=== PATIENT | male | born 1960 | race Caucasian/White ===

== ENCOUNTER 2016-12-02 16:37 | Emergency (ER) | payer BC, OTHER ==
[2016-12-02] MEDS ORDERED: Aspirin 81 MG Tab.Chew PO ONE (16:38)
--- NOTE | 2016-12-02 17:04 | EDM.PDOC ---
ED HPI GENERAL MEDICAL PROBLEM - General Chief Complaint: Chest Pain Stated Complaint: CHEST PAIN Time Seen by Provider: 12/02/16 16:45 Source of Information: Reports: Patient, Family - History of Present Illness INITIAL COMMENTS - FREE TEXT/NARRATIVE: 56 y.o.w.m[place] (out of state)anxious, s/p multiple CAD w/ups, including Stress tests, H/O HTN, was drinking last night heavily. he came to the ED with his friend to the ed due to SSCP, non radiating. No N/V/D, pt fellt dizzy MANHOLE STRIPPER, which has been subsiding. He is [place] in [place]. He is taking ativan occ for anxiety. No F/C or any other acute medical issues. His SSCP was 1/10 after ASA was given her in the ED. His BP was 145/67 and his pulse was 73 BPM on arrival. Onset: Today Onset Date: 12/02/16 Onset Time: 13:00 Duration: Hour(s): Location: Reports: Chest Quality: Reports: Pressure, Same as Previous Episode, Stabbing, Throbbing Severity: Moderate Improves with: Reports: Medication, Rest Worsens with: Reports: Other (anxiety) Context: Reports: Other (anxiety) Associated Symptoms: Reports: Chest Pain, Diaphoresis Treatments MANHOLE STRIPPER: Reports: Aspirin (given here in the ed) Chest Pain Score (Numeric/FACES): 2 - Related Data Allergies Allergy/AdvReac Type Severity Reaction Status Date / Time No Known Allergies Allergy Verified 12/02/16 16:49 Home Meds: Home Meds Aspirin [Adult Low Dose Aspirin EC] 1 tab PO DAILY 09/08/15 [History] LORazepam [Ativan] 1 mg PO BID PRN 09/08/15 [History] Lisinopril 10 mg PO DAILY 09/08/15 [History] Simvastatin [Zocor] 20 mg PO BEDTIME 09/08/15 [History] LORazepam [Ativan] 0.5 mg PO BEDTIME PRN #2 tab 12/02/16 [Rx] Past Medical History HEENT History: Reports: Impaired Vision, Sinusitis Cardiovascular History: Reports: High Cholesterol, Hypertension, Other (See Below) Other Cardiovascular History: abnormal EKG Gastrointestinal History: Reports: GERD Musculoskeletal History: Reports: Fracture Psychiatric History: Reports: Anxiety Endocrine/Metabolic History: Reports: Other (See Below) Other Endocrine/Metabolic History: borderline diabetic, then lost weight Other Hematologic History: factor 5 Leiden - Infectious Disease History Infectious Disease History: Reports: Chicken Pox, Influenza, Mononucleosis, Shingles - Past Surgical History GI Surgical History: Reports: Appendectomy, Hernia Repair/Other Social & Family History - Tobacco Use Smoking Status *Q: Never Smoker Packs/Tins Daily: 0.5 Second Hand Smoke Exposure: No - Caffeine Use Caffeine Use: Reports: Coffee - Alcohol Use Days Per Week of Alcohol Use: 4 Number of Drinks Per Day: 3 Total Drinks Per Week: 12 - Recreational Drug Use Recreational Drug Use: No ED ROS GENERAL - Review of Systems Review Of Systems: See Below Constitutional: Reports: No Symptoms HEENT: Reports: No Symptoms Respiratory: Reports: No Symptoms Cardiovascular: Reports: Chest Pain (02/20 after ASA) Endocrine: Reports: No Symptoms GI/Abdominal: Reports: No Symptoms : Reports: No Symptoms Musculoskeletal: Reports: No Symptoms Skin: Reports: No Symptoms Neurological: Reports: No Symptoms Psychiatric: Reports: No Symptoms Hematologic/Lymphatic: Reports: No Symptoms Immunologic: Reports: No Symptoms ED EXAM, GENERAL - Physical Exam Exam: See Below Exam Limited By: No Limitations General Appearance: Alert, WD/WN, Mild Distress Eye Exam: Bilateral Eye: Normal Inspection Ears: Normal External Exam Ear Exam: Bilateral Ear: Auricle Normal Nose: Normal Inspection Throat/Mouth: Normal Inspection, Normal Gums, Normal Oropharynx, Normal Voice, No Airway Compromise Head: Atraumatic, Normocephalic Neck: Normal Inspection, Supple, Non-Tender Respiratory/Chest: No Respiratory Distress, Lungs Clear, Normal Breath Sounds, No Accessory Muscle Use, Chest Non-Tender Cardiovascular: Normal Peripheral Pulses, Regular Rate, Rhythm, No Edema, No Gallop, No JVD, No Murmur, No Rub Peripheral Pulses: 1+: Femoral (L), Femoral (R) GI/Abdominal: Normal Bowel Sounds, Soft, Non-Tender (Male) Exam: Deferred Rectal (Males) Exam: Deferred Back Exam: Normal Inspection Extremities: Normal Inspection, Normal Range of Motion, Non-Tender, No Pedal Edema Neurological: Alert, Oriented, CN II-XII Intact, Normal Cognition, No Motor/ Sensory Deficits Psychiatric: Anxious Skin Exam: Warm, Dry, Intact, Normal Color Lymphatic: No Adenopathy EKG INTERPRETATION EKG Date: 12/02/16 Time: 16:50 Rhythm: NSR Rate (Beats/Min): 75 [place]: Normal P-Wave: Present QRS: Normal ST-T: Normal QT: Normal Comparison: NA - No Prior EKG Course - Vital Signs Text/Narrative:: 56 y.o.w.m. (out of state)anxious, s/p multiple CAD w/ups, including Stress tests, H/O HTN, was drinking last night heavily. he came to the ED with his friend to the ed due to SSCP, non radiating. No N/V/D, pt fellt dizzy MANHOLE STRIPPER, which has been subsiding. He is [place] in [place]. He is taking ativan occ for anxiety. No F/C or any other acute medical issues. His SSCP was 1/10 after ASA was given her in the ED. His BP was 145/67 and his pulse was 73 BPM on arrival. PE: WNWD WM, anxious HEENT; Dry mucosal membrane, Lungs clear, heart RRR no murmur, benign abd. and ext. neuro: No focal weakness Labs: CBC, [place] enzymes, drug screen neg. Torponin 0.01 D Dimer <100 Imaging: CXR NAD, official report is pending Impression: a typical CP, Anxiety, dehydration Tx: ASA, Lorazepam, water po Reexam: Improved, no C/P anxiety has been resolved BP was 138/78 on D/C Plan: D/C with instructions Last Recorded V/S: Last Vital Signs Temp 36.8 C 12/02/16 18:30 Pulse 76 12/02/16 18:30 Resp 18 12/02/16 18:30 BP 138/93 H 12/02/16 18:30 Pulse Ox 98 12/02/16 18:30 - Orders/Labs/Meds Orders: Active Orders 24 hr Category Date Time Status EKG Documentation Completion [RC] ASDIRECTED Care 12/02/16 16:45 Active Chest 1V Frontal [CR] Stat Exams 12/02/16 17:01 Taken EKG 12 Lead [EK] Routine Ther 12/02/16 16:45 Ordered Labs: Laboratory Tests 12/02/16 12/02/16 12/02/16 Range/Units 16:45 16:45 17:00 WBC 7.6 (4.5-12.0) X10-3/uL RBC 5.42 (4.30-5.75) x10(6)uL Hgb 16.0 H (11.5-15.5) g/dL Hct 46.8 (30.0-51.3) % MCV 86.4 (80-96) fL MCH 29.4 (27.7-33.6) pg MCHC 34.1 (32.2-35.4) g/dL RDW 12.2 (11.5-15.5) % Plt Count 199 (125-369) X10(3)uL MPV 8.9 (7.4-10.4) fL Neut % (Auto) 78.6 (46-82) % Lymph % (Auto) 15.0 (13-37) % [place] % (Auto) 5.6 (4-12) % Eos % (Auto) 1 (1.0-5.0) % Baso % (Auto) 0 (0-2) % Neut # (Auto) 6.1 (1.6-8.3) # Lymph # (Auto) 1.1 (0.6-5.0) # [place] # (Auto) 0.4 (0.0-1.3) # Eos # (Auto) 0.0 (0.0-0.8) # Baso # (Auto) 0.0 (0.0-0.2) # D-Dimer, Quantitative (100-400) ng/mL Sodium (135-145) mmol/L Potassium (3.5-5.3) mmol/L Chloride (100-110) mmol/L Carbon Dioxide (23-29) mmol/L BUN (5-20) mg/dL Creatinine (0.6-1.3) mg/dL Est Cr Clr Drug Dosing Estimated GFR (MDRD) (>60) BUN/Creatinine Ratio (9-20) Glucose (80-116) mg/dL Calcium (8.6-10.2) mg/dL Troponin I (0.02-0.06) NG/ML Urine Color Yellow (YELLOW) Urine Appearance Clear (CLEAR) Urine pH 5.0 (5.0-6.5) Ur Specific [place] 1.010 (1.010-1.025) Urine Protein Negative (NEGATIVE) mg/dL Urine Glucose (UA) Normal (NEGATIVE) mg/dL Urine Ketones Negative (NEGATIVE) mg/dL Urine Occult Blood Negative (NEGATIVE) Urine Nitrite Negative (NEGATIVE) Urine Bilirubin Negative (NEGATIVE) Urine Urobilinogen Normal (NEGATIVE) mg/dL Ur Leukocyte Esterase Negative (NEGATIVE) Urine WBC 0-5 (0) Ur Squamous Epith Cells Occasional (NS,R,O) Urine Bacteria Few H (NS) Urine Opiates Screen Negative (NEGATIVE) Ur Oxycodone Screen Negative (NEGATIVE) Ur Propoxyphene Screen Negative (NEGATIVE) Ur Barbituates Screen Negative (NEGATIVE) Ur Tricyclics Screen Negative (NEGATIVE) Ur Phencyclidine Scrn Negative (NEGATIVE) Ur Amphetamine Screen Negative (NEGATIVE) Urine MDMA Screen Negative (NEGATIVE) U Benzodiazepines Scrn Negative (NEGATIVE) U Cocaine Metab Screen Negative (NEGATIVE) U Marijuana (THC) Screen Negative (NEGATIVE) Ethyl Alcohol (<0.01) % 12/02/16 12/02/16 12/02/16 Range/Units 17:00 17:00 17:00 WBC (4.5-12.0) X10-3/uL RBC (4.30-5.75) x10(6)uL Hgb (11.5-15.5) g/dL Hct (30.0-51.3) % MCV (80-96) fL MCH (27.7-33.6) pg MCHC (32.2-35.4) g/dL RDW (11.5-15.5) % Plt Count (125-369) X10(3)uL MPV (7.4-10.4) fL Neut % (Auto) (46-82) % Lymph % (Auto) (13-37) % [place] % (Auto) (4-12) % Eos % (Auto) (1.0-5.0) % Baso % (Auto) (0-2) % Neut # (Auto) (1.6-8.3) # Lymph # (Auto) (0.6-5.0) # [place] # (Auto) (0.0-1.3) # Eos # (Auto) (0.0-0.8) # Baso # (Auto) (0.0-0.2) # D-Dimer, Quantitative < 100 L (100-400) ng/mL Sodium 136 (135-145) mmol/L Potassium 3.8 (3.5-5.3) mmol/L Chloride 105 (100-110) mmol/L Carbon Dioxide 22 L (23-29) mmol/L BUN 17 (5-20) mg/dL Creatinine 1.0 (0.6-1.3) mg/dL Est Cr Clr Drug Dosing TNP Estimated GFR (MDRD) > 60 (>60) BUN/Creatinine Ratio 17.0 (9-20) Glucose 111 (80-116) mg/dL Calcium 9.3 (8.6-10.2) mg/dL Troponin I < 0.01 L (0.02-0.06) NG/ML Urine Color (YELLOW) Urine Appearance (CLEAR) Urine pH (5.0-6.5) Ur Specific [place] (1.010-1.025) Urine Protein (NEGATIVE) mg/dL Urine Glucose (UA) (NEGATIVE) mg/dL Urine Ketones (NEGATIVE) mg/dL Urine Occult Blood (NEGATIVE) Urine Nitrite (NEGATIVE) Urine Bilirubin (NEGATIVE) Urine Urobilinogen (NEGATIVE) mg/dL Ur Leukocyte Esterase (NEGATIVE) Urine WBC (0) Ur Squamous Epith Cells (NS,R,O) Urine Bacteria (NS) Urine Opiates Screen (NEGATIVE) Ur Oxycodone Screen (NEGATIVE) Ur Propoxyphene Screen (NEGATIVE) Ur Barbituates Screen (NEGATIVE) Ur Tricyclics Screen (NEGATIVE) Ur Phencyclidine Scrn (NEGATIVE) Ur Amphetamine Screen (NEGATIVE) Urine MDMA Screen (NEGATIVE) U Benzodiazepines Scrn (NEGATIVE) U Cocaine Metab Screen (NEGATIVE) U Marijuana (THC) Screen (NEGATIVE) Ethyl Alcohol (<0.01) % 12/02/16 Range/Units 17:00 WBC (4.5-12.0) X10-3/uL RBC (4.30-5.75) x10(6)uL Hgb (11.5-15.5) g/dL Hct (30.0-51.3) % MCV (80-96) fL MCH (27.7-33.6) pg MCHC (32.2-35.4) g/dL RDW (11.5-15.5) % Plt Count (125-369) X10(3)uL MPV (7.4-10.4) fL Neut % (Auto) (46-82) % Lymph % (Auto) (13-37) % [place] % (Auto) (4-12) % Eos % (Auto) (1.0-5.0) % Baso % (Auto) (0-2) % Neut # (Auto) (1.6-8.3) # Lymph # (Auto) (0.6-5.0) # [place] # (Auto) (0.0-1.3) # Eos # (Auto) (0.0-0.8) # Baso # (Auto) (0.0-0.2) # D-Dimer, Quantitative (100-400) ng/mL Sodium (135-145) mmol/L Potassium (3.5-5.3) mmol/L Chloride (100-110) mmol/L Carbon Dioxide (23-29) mmol/L BUN (5-20) mg/dL Creatinine (0.6-1.3) mg/dL Est Cr Clr Drug Dosing Estimated GFR (MDRD) (>60) BUN/Creatinine Ratio (9-20) Glucose (80-116) mg/dL Calcium (8.6-10.2) mg/dL Troponin I (0.02-0.06) NG/ML Urine Color (YELLOW) Urine Appearance (CLEAR) Urine pH (5.0-6.5) Ur Specific [place] (1.010-1.025) Urine Protein (NEGATIVE) mg/dL Urine Glucose (UA) (NEGATIVE) mg/dL Urine Ketones (NEGATIVE) mg/dL Urine Occult Blood (NEGATIVE) Urine Nitrite (NEGATIVE) Urine Bilirubin (NEGATIVE) Urine Urobilinogen (NEGATIVE) mg/dL Ur Leukocyte Esterase (NEGATIVE) Urine WBC (0) Ur Squamous Epith Cells (NS,R,O) Urine Bacteria (NS) Urine Opiates Screen (NEGATIVE) Ur Oxycodone Screen (NEGATIVE) Ur Propoxyphene Screen (NEGATIVE) Ur Barbituates Screen (NEGATIVE) Ur Tricyclics Screen (NEGATIVE) Ur Phencyclidine Scrn (NEGATIVE) Ur Amphetamine Screen (NEGATIVE) Urine MDMA Screen (NEGATIVE) U Benzodiazepines Scrn (NEGATIVE) U Cocaine Metab Screen (NEGATIVE) U Marijuana (THC) Screen (NEGATIVE) Ethyl Alcohol < 0.01 (<0.01) % Meds: Medications Discontinued Medications Generic Name Dose Route Start Last Admin Trade Name Freq PRN Reason Stop Dose Admin Aspirin 324 mg 12/02/16 16:38 12/02/16 16:38 Aspirin PO 10/22/17 16:39 324 mg ONETIME ONE Administration Lorazepam 0.5 mg 12/02/16 18:35 12/02/16 18:43 Ativan PO 12/02/16 18:36 0.5 mg ONETIME ONE Administration Departure - Departure Time of Disposition: 18:26 Disposition: Home, Self-Care 01 Condition: Good Clinical Impression: Atypical chest pain, Anxiety Prescriptions: LORazepam [Ativan] 0.5 mg PO BEDTIME PRN #2 tab PRN Reason: Anxiety Referrals: PCP,None [Primary Care Provider] - Forms: ED Department Discharge Additional Instructions: Please take the lisinopril as recommended, Ativan at bedtime for anxiety, please f/u to get your BP checked this Saturday, Benadyl as sleep inducer. Please come back to the ed if your symptoms get worse acutely. - My Orders Last 24 Hours: My Active Orders 12/02/16 16:45 EKG Documentation Completion [RC] ASDIRECTED EKG 12 Lead [EK] Routine 12/02/16 17:01 Chest 1V Frontal [CR] Stat - Assessment/Plan Last 24 Hours: My Active Orders 12/02/16 16:45 EKG Documentation Completion [RC] ASDIRECTED EKG 12 Lead [EK] Routine 12/02/16 17:01 Chest 1V Frontal [CR] Stat
[2016-12-02 18:31] VITALS: BP 138/93
[2016-12-02] MEDS ORDERED: LORazepam 0.5 MG Tab PO ONE (18:35)
--- NOTE | 2016-12-03 11:57 | CR ---
INDICATION: Chest pain. CHEST: An AP upright view of the chest was obtained portable and revealed the heart to be normal in size and shape. The aorta is somewhat tortuous. Overlying EKG leads are noted. Lungs appear to be somewhat hyperaerated. A definite active infiltrate or effusion was not identified. IMPRESSION: 1. No acute process. 2. ASD aorta. 3. Possible COPD - correlate clinically. MTDD
== END 2016-12-02 18:50 | disposition home or self-care (01) ==
LOC: FB.ED 16:37
DX: R07.89 Other chest pain (principal); F41.9 Anxiety disorder, unspecified; E86.0 Dehydration; I10 Essential (primary) hypertension; E78.00 Pure hypercholesterolemia, unspecified; K21.9 Gastro-esophageal reflux disease without esophagitis; Z79.899 Other long term (current) drug therapy; Z79.82 Long term (current) use of aspirin
CPT/HCPCS: 36415; 71010; 80048; 80305; 81001; 84484; 85025; 85379; 93005; 99285; A9270; G0480; 99284